=== PATIENT | female | born 1965 | race Caucasian/White ===

== ENCOUNTER 2017-05-24 11:23 | Emergency (ER) | payer OTHER ==
[~2017-05-24] VITALS: Ht 160 cm; Wt 70.3 kg
--- NOTE | 2017-05-24 11:48 | ED SKIN/ALLERGY COMPLAINT ---
History of Present Illness General Chief Complaint: Allergy Symptoms Stated Complaint: ALLERGIC REACTION Source: patient, family, old records Exam Limitations: no limitations Vital Signs & Intake/Output Vital Signs & Intake/Output Vital Signs Date Time Temp Pulse Resp B/P B/P Pulse O2 O2 Flow FiO2 Mean Ox Delivery Rate 05/24 1352 98.3 76 18 126/88 98 Room Air 05/24 1211 97 05/24 1157 98 Room Air 05/24 1125 97.1 118 18 133/87 99 Room Air Allergies Coded Allergies: egg (Severe, ANAPHYLAXIS 05/24/17) peanut (Severe, ANAPHYLAXIS 05/24/17) sesame seed (Severe, ANAPHYLAXIS 05/24/17) tree nut (Severe, ANAPHYLAXIS 05/24/17) NSAIDS (Non-Steroidal Anti-Inflamma (RASH, HIVES 05/24/17) Penicillins (RASH, HIVES 05/24/17) animal dander (DYSPNEA, ALLERGY INDUCED ASTHMA 05/24/17) apple (HIVES - FROM FRESH FRUIT 05/24/17) aspirin (RASH, HIVES 05/24/17) key (HIVES FROM FRESH FRUIT 05/24/17) peach (HIVES - FROM FRESH FRUIT 05/24/17) potato (RAW - HIVES, RASH, VOMITING 05/24/17) Uncoded Allergies: TREE FRUIT (HIVES - FROM FRESH FRUIT 05/24/17) Reconcile Medications Biotin (Unknown Strength) CAPSULE (Unknown Dose) PO DAILY SUPPLEMENT ( Reported) Bupropion HCl (Bupropion XL) 300 MG TAB.ER.24H 1 TAB PO QAM KNEE PAIN ( Reported) Calcium Citrate/Magnesium/D3 (Calcium Citrate Chewable Wafer) (Unknown Strength) WAFER (Unknown Dose) PO DAILY SUPPLEMENT (Reported) Cyclobenzaprine HCl 10 MG TABLET 0.5 TAB PO PRN SLEEP (Reported) Duloxetine HCl 60 MG CAPSULE.DR 1 CAP PO DAILY KNEE PAIN (Reported) Epinephrine (Epipen 2-Berry) 0.3 MG/0.3 ML AUTO.INJCT 1 INJ SQ ONCE PRN ANAPHYLAXIS Methylprednisolone. (Medrol) 4 MG TAB.DS.PK 1 DP PO AD ALLERGIC RXN 6 on day 1 then reduce by one tablet daily until gone Montelukast Sodium 10 MG TABLET 1 TAB PO DAILY ALLERGIES (Reported) Omeprazole 40 MG CAPSULE.DR 1 CAP PO DAILY GI (Reported) Propranolol HCl 60 MG TABLET 1 TAB PO DAILY MIGRAINES (Reported) Rosuvastatin Calcium (Crestor) 20 MG TABLET 1 TAB PO DAILY CHOLESTEROL ( Reported) Sumatriptan Succinate 100 MG TABLET 1 TAB PO AD PRN MIGRAINES (Reported) may repeat in 2 hours; do not exceed 200 mg in 24 hours Vitamin B Complex 1 EACH CAPSULE 1 CAP PO DAILY SUPPLEMENT (Reported) Triage Note: PT TO TRIAGE WITH COMPLAINTS THAT SHE CANT BREATHE, HAS NUMEROUS ALLERGIES AND FEELS LIKE SHE IS HAVING A REACTION TO SESAME SEEDS, STATES THAT SHE ATE BREAD AND IMMEDIATLY STARTED TO FEEL SOB, O2 SAT 100 % ON RA ABLE TO SPEAK IN FULL SENTENCES AND SWALLOW HER SALIVA ON ARRIVAL, LUNGS CLEAR. PT STATES THAT SHE ALSO VOMITTED X 1. Triage Nurses Notes Reviewed? yes Onset: Abrupt Duration: hour(s): (1), constant Timing: recent history Severity: moderate Severity Numbers: 6 Possible Factors: ate sesame seeds No Modifying Factors: none Associated Symptoms: nv, sob HPI: 52-year-old female history of high cholesterol history of anaphylaxis allergic reactions in the past presents to the ER complaining of sudden onset of difficulty breathing nausea vomiting and generalized pruritus that began approximate hour ago after she had a Sesame seed piece of bread. She states as a child she had a similar reaction to this. She did not take anything prior to arrival she does have an EpiPen at home did not use today. She denies any abdominal pain diarrhea cough, difficulty swallowing. No chest pain fever chills (Guero Gold) Past History Travel History Traveled to [place] past 21 day No Medical History Any Pertinent Medical History? see below for history Neurological: migraine EENT: NONE Cardiovascular: hyperlipidemia Respiratory: NONE Gastrointestinal: NONE Hepatic: NONE Musculoskeletal: CHRONIC KNEE Psychiatric: NONE Endocrine: NONE Blood Disorders: NONE Cancer(s): NONE Surgical History Surgical History: non-contributory Psychosocial History What is your primary language Haitian Tobacco Use: Never used ETOH Use: denies use Illicit Drug Use: denies illicit drug use Family History Hx Contributory? No (Guero Gold) Review of Systems Review of Systems Constitutional: Reports: no symptoms, see HPI. Comments Review of systems: See HPI, All other systems negative. Constitutional, no chills no fever, HEENT: no sore throat no congestion Cardiovascular: No chest pain , no palpitation Skin: no rashes, no change in skin Respiratory: (+) dyspnea no cough no sputum no hemoptysis GI: (+) nausea (+) vomiting, no diarrhea, no bloating/constipation : No dysuria No hematuria, no frequency Muscle skeletal: No joint pain, no back pain Neurologic: , no headache Heme/endocrine: No bruising (Guero Gold) Physical Exam Physical Exam General Appearance: well developed/nourished, alert, awake Comments: Well-developed well-nourished person in no acute distress Head/Face: Atraumatic, no facial swelling Eyes: PERRL, EOMI Ear:External auditory canals clear, Nose: atraumatic.Normal inspection Throat: Moist mucous membranes.Pharynx normal. No pharyngeal erythema/exudate seen. No stridor/drooling or assymetry. No swelling or edema. no uvula displacement, no trismus Neck: Supple, no lymphadenopathy, FROM Back: Nontender, no CVA tenderness. Full range of motion Cardiovascular: Regular rate and rhythms no murmur Respiratory: No respiratory distress. Patient speaking in full complete sentences. Breath sounds clear to auscultation bilaterally: NO W/R/R Abdomen: Soft, nontender nondistended Extremity: No edema, full range of motion of extremities Neuro: Alert oriented x3, motor sensory normal, There were no obvious focal neurologic abnormalities. Skin: No appreciable rash on exposed skin, skin is warm and dry. no urticaria Psych: Mood and affect is normal, memory and judgment is normal. (Guero Gold) Progress Differential Diagnosis: allergic reaction, anaphylaxis, angioedema, asthma Plan of Care: Current Medications Sig/Diony Start time Last Medication Dose Stop Time Status Admin Sodium Chloride 1,000 ML BOLUS ONE 05/24 1145 AC 05/24 (Normal Saline 0.9%) 05/24 1244 1155 Patient has had similar allergic reactions in the past medic unit Zofran 4, DuoNeb Pepcid 20 Benadryl 50 IV fluids Solu-Medrol 125 IV she is speaking full complete sentences no trismus no drooling no vomiting at this time we will continue to monitor. Case discussed with Dr. Monson agrees with plan 1220- pt feeling improved with duoneb. resting in nad. 1310 pt resting in nad on repeat evaluation she is requesting to go home she reports to feeling significantly improved she is tolerating by mouth challenge no vomiting no rash discussed with her plan of care we'll send her home with a new EpiPen as well as prescription for Medrol Dosepak return precautions were discussed at length apical pleural plan cleared for discharge (Guero Gold) Departure Departure Time of Disposition: 1324 Disposition: HOME OR SELF CARE Condition: Stable Clinical Impression Primary Impression: Allergic reaction Additional Instructions: Medrol Dosepak as directed, Benadryl every 8 hours as needed. EpiPen as discussed follow-up with your primary care physician this week return to the emergency room anytime sooner with any concerns. Departure Forms: Customer Survey General Discharge Information Prescriptions: Current Visit Scripts Epinephrine (Epipen 2-Berry) 1 INJ SQ ONCE PRN ANAPHYLAXIS #1 PAC Methylprednisolone. (Medrol) 1 DP PO AD #1 DP 6 on day 1 then reduce by one tablet daily until gone (Guero Gold) PA/DRY CLEANER PRESSER Co-Sign Statement Statement: ED Attending supervision documentation- [] I saw and evaluated the patient. I have also reviewed all the pertinent lab results and diagnostic results. I agree with the findings and the plan of care as documented in the PA's/DRY CLEANER PRESSER's documentation. [X] I have reviewed the ED Record and agree with the PA's/DRY CLEANER PRESSER's documentation. [] Additions or exceptions (if any) to the PAs/DRY CLEANER PRESSER's note and plan are summarized below: [] ([place] DC,Farooq Garcia)
[2017-05-24] MEDS ORDERED: CRESTOR20 M2 PO (12:14)
[2017-05-24] MEDS ORDERED: MONTELUKAST SOD10 M1 PO (12:15)
[2017-05-24] MEDS ORDERED: DULOXETINE HCL60 MG PO (12:15)
[2017-05-24] MEDS ORDERED: PROPRANOLOL HCL60 M3 PO (12:15)
[2017-05-24] MEDS ORDERED: BUPROPION XL300 M1 PO (12:15)
[2017-05-24] MEDS ORDERED: OMEPRAZOLE40 M1 PO (12:16)
[2017-05-24] MEDS ORDERED: CYCLOBENZAPRINE10 M1 PO (12:16)
[2017-05-24] MEDS ORDERED: SUMATRIPTAN SU100 M1 PO (12:17)
[2017-05-24] MEDS ORDERED: CALCIUM CITRAT1 EA12 PO (12:18)
[2017-05-24] MEDS ORDERED: VITAMIN B COMP1 EACH PO (12:19)
[2017-05-24] MEDS ORDERED: BIOTIN2500 MCG PO (12:19)
[2017-05-24] MEDS ORDERED: MEDROL4 M2 PO (13:27)
[2017-05-24] MEDS ORDERED: EPIPEN 2-P0.3 MG/0.3 SQ (13:27)
[2017-05-24 13:52] VITALS: BP 126/88
== END 2017-05-24 13:53 ==
LOC: ERH 11:23
DX: T78.40XA Allergy, unspecified, initial encounter (principal); R11.2 Nausea with vomiting, unspecified; L29.9 Pruritus, unspecified; R06.00 Dyspnea, unspecified
CPT/HCPCS: 1263; 96374; 96375